=== PATIENT | male | born 1985 | race American Indian/Alaskan Native ===

== ENCOUNTER 2025-01-17 18:58 | Emergency (ER) | payer BC ==
[~2025-01-17] VITALS: Ht 185.4 cm; Wt 141.0 kg
[2025-01-17] MEDS ORDERED: MORPHINE SULFATE 4 MG/ML VIAL IV ONE (20:15)
[2025-01-17 20:21] LABS: BILIRUBIN, URINE NEGATIVE (negative); BLOOD/HGB, URINE NEGATIVE (Negative); KETONE, URINE NEGATIVE (Negative); LEUK ESTERASE, URINE NEGATIVE (negative); NITRITE, URINE NEGATIVE (negative)
[2025-01-17 20:21] LABS: BASOPHILS 0.7 % (0-2); EOSINOPHILS 4.1 % (0-6); HEMOGLOBIN 14.7 g/dL (12.0-18.0); LYMPHOCYTES 24.2 % (24-44); MCH 28.1 (27-36); MCHC 34.1 g/dl (30-36); MCV 82.4 fl (81-99); MONOCYTES 5.2 % (0-12); NEUTROPHILS 65.8 % (39-80); PLATELET COUNT 389 K/uL (140-440); RBC 5.22 M/ul (4.3-5.7); RDW 14.2 (10.5-15.0)
[2025-01-17 20:27] LABS: BACTERIA, URINE RARE /hpf (negative); CRYSTALS, URINE NONE SEEN (0-1+); EPITHELIAL CELLS, URINE SQUAMOUS 1+ /lpf (0-1+); RED BLOOD CELLS, URINE 0-1 /hpf (0-5)
[2025-01-17 20:28] LABS: CASTS, URINE NONE SEEN \\lpf; COLLECTION TYPE, URINE CLEAN CATCH; REFLEX CULTURE, URINE No (No)
[2025-01-17 20:37] LABS: ALBUMIN 3.6 g/dL (3.4-5.0); ALBUMIN/GLOBULIN RATIO 0.82 (1.1-2.4); ANION GAP 12.7 (7-21); BILIRUBIN, TOTAL 0.3 mg/dL (0.2-1.0); BUN/CREATININE RATIO 17.75 (6.0-28.6); CALCIUM 8.8 mg/dL (8.5-10.1); CREATININE, SERUM 1.07 mg/dL (0.70-1.30); POTASSIUM 3.7 mmol/L (3.5-5.1)
[2025-01-17] MEDS ORDERED: HYDROCODON-ACE1 EA10 PO (22:00)
[2025-01-17 22:41] VITALS: BP 123/82
== END 2025-01-17 22:35 | disposition home or self-care (01) ==
LOC: ED 18:58
PROVIDERS: Family Medicine
DX: N50.3 Cyst of epididymis (principal); J45.909 Unspecified asthma, uncomplicated
CPT/HCPCS: 36415; 76870; 80053; 81001; 85025; 96374; 99284-25; J2270

== ENCOUNTER 2025-08-09 12:53 | Emergency (ER) | payer OTHER, BC ==
[~2025-08-09] VITALS: Ht 185.4 cm; Wt 105.0 kg
[~2025-08-09 12:53] MED LIST: HYDROCODON-ACE1 EA10 PO
[2025-08-09] MEDS ORDERED: HYDROCODONE/ACETA 5/325 TAB PO ONE (13:15)
[2025-08-09] MEDS ORDERED: OMEPRAZOLE40 MG PO (13:21)
[2025-08-09] MEDS ORDERED: VENLAFAXINE HCL75 M1 PO (13:21)
[2025-08-09] MEDS ORDERED: HYDROCODON-ACE1 EA11 PO (13:53)
[2025-08-09 14:05] VITALS: BP 135/94
== END 2025-08-09 14:05 | disposition home or self-care (01) ==
LOC: ED 12:53
DX: S20.211A Contusion of right front wall of thorax, initial encounter (principal); J45.909 Unspecified asthma, uncomplicated; V57.5XXA Driver of pick-up truck or van injured in collision with fixed or stationary object in traffic accident, initial encounter
CPT/HCPCS: 71046; 99284-25